=== PATIENT | male | born 1970 | race Caucasian/White ===

== ENCOUNTER 2021-03-27 07:08 | Outpatient (CLI) | payer BC, SELFPAY ==
--- NOTE | 2021-03-27 08:57 | NEURO_ITS ---
NCS and/or EMG Patient Report Ordering Doctor: Uriel Churchill DATE OF SERVICE: 03/27/21 Indication: Left shoulder pain. Intermittent paresthesia when moving his arm in a certain position. No definitive neck pain, muscle weakness or fixed sensory loss. Evaluate for cervical radiculopathy. Findings: Nerve conduction studies were performed in the left upper extremity. The left median motor study recording the abductor pollicis brevis showed a normal amplitude, normal distal latency and normal conduction velocity. The left ulnar motor study recording the abductor digiti minimi showed a normal amplitude, normal distal latency and normal conduction velocity. No conduction block or focal slowing was present across the elbow. Left median ulnar lumbrical / interosseous motor latencies showed a borderline difference. The left median sensory response recording digit two showed a normal amplitude, latency and conduction velocity. The left ulnar sensory response recording digit five showed a normal amplitude, latency and conduction velocity. The left radial sensory response recording over the extensor snuff box showed a normal amplitude, latency and conduction velocity. Needle EMG of the left upper extremity and cervical paraspinal muscles was performed. No denervation was seen in any muscle. All motor unit morphology, activation and recruitment patterns were normal. Impression: This is an essentially normal study. There is no electrophysiologic evidence of cervical radiculopathy in either the left upper extremity. In addition, there was no electrophysiologic evidence of median or ulnar entrapment neuropathy in the left upper extremity. Please note: the electrodiagnosis of radiculopathy is made on the basis of excluding peripheral nerve lesions on nerve conduction studies and the needle EMG demonstrating denervation and/or reinnervation in the distribution of one or more nerve roots (i.e., acute and/or chronic axonal loss). Thus, electrodiagnostic studies are insensitive in detecting radiculopathy in the absence of axonal loss (e.g., in the setting of compression resulting in intermi ttent ischemia or mechanical deformation; or demyelination without axonal loss). Thus, clinical correlation is required in the interpretation of this negative electrodiagnostic study for radiculopathy. Heri Ramires D.O. Multi Select Codes Neurology Neurology Interp Codes: 60507-50 Musc test done w/n test comp (interp) and 16069-54 Nrv cndj test 7-8 studies (interp)
== END 2021-03-27 23:59 | disposition short-term general hospital (02) ==
PROVIDERS: PCP Family Medicine; Referring Provider Orthopaedic Surgery; Visit Provider Orthopaedic Surgery
DX: M47.22 Other spondylosis with radiculopathy, cervical region (principal); M50.323 Other cervical disc degeneration at C6-C7 level; M48.02 Spinal stenosis, cervical region
CPT/HCPCS: 95886; 95910